=== PATIENT | female | born 1975 | race Two or more races ===

== ENCOUNTER 2019-05-01 17:57 | Emergency (ER) | payer SELFPAY ==
[~2019-05-01] VITALS: Ht 167.6 cm; Wt 102.1 kg
[2019-05-01] MEDS ORDERED: ACETAMINOPHEN 325 MG TABLET PO ONE (18:15)
--- NOTE | 2019-05-01 18:53 | NUR ---
Patient discharged to home in stable condition & brisk steady gait. Written and verbal after care instructions given to patient. Patient verbalized understanding & compliance of instructions.
== END 2019-05-01 18:55 | disposition home or self-care (01) ==
LOC: ER 18:00
DX: H66.92 Otitis media, unspecified, left ear (principal)
CPT/HCPCS: A4663